=== PATIENT | female | born 1960 | race Two or more races ===

== ENCOUNTER 2024-03-29 12:40 | Emergency (ER) | payer MEDICAID, OTHER ==
[~2024-03-29] VITALS: Ht 160 cm; Wt 84.4 kg
[2024-03-29 13:50] VITALS: BP 182/93; PULSE 98; RESP 18; TEMP 98; O2SAT 96
--- NOTE | 2024-03-29 14:09 | ED.PDOC ---
Back pain HPI HPI Comments A 63-YEAR-OLD FEMALE PRESENTS WITH A CHIEF COMPLAINT OF NECK PAIN X 3 YEARS. PATIENT STATES THAT HER PAIN IS LOCALIZED TO HER NECK, RADIATES TO HER LEFT ARM, AND DESCRIBES SHARP IN NATURE. PATIENT DENIES ANY INJURIES OR TRAUMA PRIOR TO ONSET OF SYMPTOMS. PATIENT IS ABLE TO MOVE HER EXTREMITY WELL WITHOUT DIFFICULTY, BUT STATES THAT IT IS SOMEWHAT PAINFUL. PT DENIES FALL INJURY, FEVER, SOB, CHEST PAIN, HEADACHE, DIZZINESS AND OTHER COMPLAINTS. NO OTHER SYMPTOMS OR MODIFYING FACTORS PRESENT AT THIS TIME. Chief Complaint: Upper Extremity Time Seen by MD: 14:02 Reviewed Notes: Nurses Notes, Medications, Allergies Home Meds Active Scripts Ibuprofen (Ibuprofen) 800 Mg Tab, 1 TAB PO TID, #30 TAB Prov:PARTHA BELTRE 03/29/24 Information Source: Patient Mode of Arrival: Ambulatory Timing: Months Duration: Intermittent Location of Back pain: (B) Cervical, Other (UPPER EXTREMITY ) Severity: Moderate Prehospital treatment: None Quality: Sharp Onset: Spontaneous History of: Chronic Back Pain Associated signs and symptoms: None Past Medical History PAST MEDICAL HISTORY: Denies Surgical History: Denies all surgeries DIGITAL TRAFFIC COORDINATOR History: Denies all DIGITAL TRAFFIC COORDINATOR Hx Family History Family History: Reviewed,noncontributory to illness Social History Smoker: Non-Smoker Alcohol: Denies ETOH Use Drugs: Denies Drug Use Lives In: Home Constitutional: denies: chills, diaphoresis, fatigue, fever, malaise, sweats, weakness, others EENTM: denies: blurred vision, double vision, ear bleeding, ear discharge, ear drainage, ear pain, ear ringing, eye pain, eye redness, hearing loss, mouth pain, mouth swelling, nasal discharge, nose bleeding, nose congestion, nose pain, photophobia, tearing, throat pain, throat swelling, voice changes, others Respiratory: denies: cough, hemoptysis, orthopnea, SOB at rest, shortness of breath, SOB with excertion, stridor, wheezing, others Cardiovascular: denies: chest pain, dizzy spells, diaphoresis, Dyspnea on exertion, edema, irregular heart beat, left arm pain, lightheadedness, palpitations, PND, syncope, others Gastrointestinal: denies: abdomen distended, abdominal pain, blood streaked bowels, constipated, diarrhea, dysphagia, difficulty swallowing, hematemesis, melena, nausea, poor appetite, poor fluid intake, rectal bleeding, rectal pain, vomiting, others Genitourinary: denies: abnormal vagina bleeding, burning, dyspareunia, dysuria, flank pain, frequency, hematuria, incontinence, pain, , vagina discharge, urgency, others Neurological: denies: dizziness, fainting, headache, left sided numbness, left sided weakness, numbness, paresthesia, pre-existing deficit, right sided numbness, right sided weakness, seizure, speech problems, tingling, tremors, weakness, others Musculoskeletal: reports: muscle pain, neck pain; denies: back pain, gout, joint pain, joint swelling, muscle stiffness, others Integumetry: denies: bruises, change in color, change in hair/nails, dryness, laceration, lesions, lumps, rash, wounds, others Allergic/Immunocompromised: denies: Difficulty Healing, Frequent Infections, Hives, Itching, others Hematologic/Lymphatic: denies: anemia, blood clots, easy bleeding, easy bruising, swollen glands, others Endocrine: denies: excessive hunger, excessive sweating, excessive thirst, excessive urination, flushing, intolerance to cold, intolerance to heat, unexplained weight gain, unexplained weight loss, others Psychiatric: denies: anxiety, bipolar disorder, depression, hopeless, panic disorder, schizophrenia, sleepless, suicidal, others All Other Systems: Reviewed and Negative Physical Exam General Appearance: No Apparent Distress, Normal HEENT: Normal ENT Inspection, PERRL/EOMI, Pharynx Normal, TMs Normal Neck: Full Range of Motion, Normal Inspection, Supple, Tender Lateral (TENDERNESS AND MUSCLE SPASM ON POSTERIOR NECK, NO BONY TENDERNESS, SWELLING AND DEFORMITY. ) Respiratory: Chest Non-Tender, Lungs Clear, No Accessory Muscle Use, No Respiratory Distress, Normal Breath Sounds Cardiovascular: No Edema, No JVD, No Murmur, No Gallop, Normal Peripheral Pulses, Regular Rate/Rhythm Breast Exam: Deferred Gastrointestinal: No Organomegaly, Non Tender, No Pulsatile Mass, Normal Bowel Sounds, Soft Genitalia: Deferred Pelvic: Deferred Rectal: Deferred Extremities: No calf tenderness, Normal capillary refill, Normal inspection, Normal range of motion, Non-tender, No pedal edema Musculoskeletal : Apperance: Normal Neurologic: Alert, mutual fund manager II-XII nml as Tested, No Motor Deficits, Normal Affect, Normal Mood, No Sensory Deficits Cerebellar Function: Normal Reflexes: Normal Skin: Dry, Normal Color, Warm Peripheral Pulses: 2+ carotid (R), 2+ carotid (L) Lymphatic: No Adenopathy Was a procedure done? Was a procedure done?: No Back Pain Differential Dx Differential Diagnosis: Musculoskeletal Pain, Strain, Other (CERVICAL RADICULOPATHY ) X-Ray, Labs, Meds, VS Vital Signs Date Time Temp Pulse Resp B/P (MAP) Pulse Ox O2 Delivery O2 Flow Rate FiO2 03/29/24 13:50 98.0 98 18 182/93 (122) 96 98.0 03/29/24 13:50 98 18 96 Room Air 03/29/24 12:51 98.0 98 18 182/93 (122) 96 PATIENT: ABHILASH CHRISTINA: [id number]: [id number] : 1960 LOC: ER ROOM / BED: / AGE / SEX: 63 / F ADM STATUS: REG ER SERVICE 02 ORDERING PHYSICIAN: PARTHA BELTRE PROCEDURE(s): CERV2 - CERVICAL SPINE 3V REASON: NECK PAIN TO LEFT UPPER EXTREMITY ORDER NUMBER(s): [id number], ACCESSION NUMBER(s): [id number] CLINICAL INDICATION: NECK PAIN TO LEFT UPPER EXTREMITY TECHNIQUE: 4 radiographic views of the cervical spine were obtained. Comparison: None FINDINGS/IMPRESSION: 7 [id number] cervical type vertebrae. Straightening of the cervical lordosis. The vertebral body heights are maintained. No evidence of acute traumatic fractures or spondylolisthesis. The dens is intact with the lateral masses of C1 and C2 properly aligned. The prevertebral soft tissues are unremarkable. The lung apices are clear. ATED BY: KATHERINE DUNLAP DO DICTATED DATE/TIME: 03/29/241422 SIGNED BY: KATHERINE DUNLAP DO SIGNED DATE/TIME: 03/29/241422 CC: X-Ray, Labs, Meds, VS Comment EXTERNAL MEDICAL RECORDS REVIEWED: [NONE] INDEPENDENT HISTORIANS: [NONE] SOCIAL DETERMINANTS OF HEALTH: [NONE] LABS ORDERED: NONE REVIEWED AND INTERPRETED RESULTS: NONE IMAGING ORDERED: NONE TREATMENTS ORDERED: TYLENOL 1GM PO PROCEDURES PERFORMED: NONE CRITICAL CARE TIME: NONE I HAVE DISCUSSED THE PATIENT WITH THE ATTENDING PHYSICIAN DR. PAUL AND HE AGREES WITH THE PATIENT'S PLAN OF CARE AND DISPOSITION. GIVEN THE HISTORY AND PRESENT ILLNESS OF THE PATIENT, AFTER REVIEWING LABS, IMAGING, AND COURSE OF TREATMENT ADMINISTERED DURING THEIR ED VISIT, THERE IS LOW SUSPICION FOR RED FLAG FINDINGS. BASED ON HISTORY OF PRESENT ILLNESS, AND PHYSICAL EXAM, PATIENT WILL BE DISCHARGED HOME. DISCUSSED PLAN FOR DISCHARGE HOME WITH RX []. MEDICATION WA RNINGS GIVEN. SHARED DECISION MAKING: DISCUSSED WITH PATIENT THAT THEIR WORKUP WAS NORMAL. PATIENT INSTRUCTED TO FOLLOW UP WITH PRIMARY CARE PROVIDER IN 1-2 DAYS FOR RE- EVALUATION OF SYMPTOMS. PATIENT VERBALIZES UNDERSTANDING TO RETURN TO ED FOR NEW OR WORSENING SYMPTOMS OR IF FOLLOW UP WITH PCP CANNOT BE OBTAINED. PATIENT FEELS COMFORTABLE GOING HOME AT THIS TIME. ALL QUESTIONS ADDRESSED AT TIME OF DISCHARGE. Time of 1ST Reevaluation: 14:33 Reevaluation 1ST: Improved Patient Education/Counseling: Diagnosis, Treatment, Prognosis Family Education/Counseling: Diagnosis, Treatment, Need For Follow Up Medical Screening: No EMC Exist At This Time Departure 1 Departure Time of Disposition: 14:33 Impression: Primary Impression: Chronic neck pain Additional Impression: Cervical radiculopathy Disposition: 01 HOME / SELF CARE / HOMELESS Condition: Stable Additional Instructions: FOLLOW UP WITH YOUR PCP IN 1-2 DAYS AND ASK FOR AN MRI OF YOUR CERVICAL SPINE. RETURN TO THE ER IF YOUR SYMPTOMS WORSEN. e-Prescriptions Ibuprofen (Ibuprofen) 800 Mg Tab 1 TAB PO TID, #30 TAB Prov: PARTHA BELTRE 03/29/24 Discharged With: Self Critical Care Note Critical Care Time?: No Stability Stability form required: No Heart Score Heart Score: Heart Score Response (Comments) Value History N/A 0 EKG N/A 0 Age N/A 0 Risk Factors N/A 0 Troponin N/A 0 Total 0 I personally scribed for PARTHA BELTRE ([email or web address]) on 03/29/24 at 14:09. Electronically submitted by Rj Sloan ([email or web address]). I personally scribed for PARTHA BELTRE ([email or web address]) on 03/29/24 at 14:29. Electronically submitted by Rj Sloan ([email or web address]). PARTHA BELTRE Mar 29, 2024 14:09
--- NOTE | 2024-03-29 14:26 | DVH ---
CLINICAL INDICATION: NECK PAIN TO LEFT UPPER EXTREMITY TECHNIQUE: 4 radiographic views of the cervical spine were obtained. Comparison: None FINDINGS/IMPRESSION: 7 [id number] cervical type vertebrae. Straightening of the cervical lordosis. The vertebral bod y heights are maintained. No evidence of acute traumatic fractures or spondylolisthesis. The dens is intact with the lateral masses of C1 and C2 properly aligned. The prevertebral soft tissues are unremarkable. The lung apices are clear.
[2024-03-29] MEDS ORDERED: IBUP-1456 PO (14:30)
[2024-03-29] MEDS: ACETAMINOPHEN 325 MG TAB PO ONE (14:34)
== END 2024-03-29 14:38 | disposition home or self-care (01) ==
LOC: ER 12:40
DX: M54.12 Radiculopathy, cervical region (principal); G89.29 Other chronic pain; M54.2 Cervicalgia; Z79.1 Long term (current) use of non-steroidal anti-inflammatories (NSAID)
CPT/HCPCS: 72040